=== PATIENT | female | born 1995 | race Caucasian/White ===

== ENCOUNTER 2024-04-06 10:07 | Emergency (ER) | payer SELFPAY ==
[2024-04-06] MEDS ORDERED: Acetaminophen 500 MG TAB ONE (10:58)
== END 2024-04-06 11:59 | disposition home or self-care (01) ==
LOC: NAV ERS 10:07
DX: F07.81 Postconcussional syndrome (principal); F17.290 Nicotine dependence, other tobacco product, uncomplicated; Z55.6 Problems related to health literacy
CPT/HCPCS: 70450

== ENCOUNTER 2024-04-29 14:26 | Emergency (ER) | payer OTHER, SELFPAY | END 2024-04-29 15:38 | disposition home or self-care (01) | LOC: NAV ERS 14:26 | DX: S00.83XA Contusion of other part of head, initial encounter (principal); S80.812A Abrasion, left lower leg, initial encounter; S80.811A Abrasion, right lower leg, initial encounter; F07.81 Postconcussional syndrome; F17.290 Nicotine dependence, other tobacco product, uncomplicated; V89.2XXA Person injured in unspecified motor-vehicle accident, traffic, initial encounter | CPT/HCPCS: 99283 ==